=== PATIENT | male | born 1970 | race Caucasian/White ===

== ENCOUNTER 2025-05-11 16:39 | Observation (INO) ==
--- NOTE | 2025-05-11 17:39 | CT ---
EXAM: CT HEAD WITHOUT CONTRAST HISTORY: possible stroke; CVA X 1WEEK COMPARISON: None. TECHNIQUE: Axial CT images were obtained through the brain without contrast. All CT scans at this facility use dose modulation, iterative reconstruction, and/or weight based dosing when appropriate to reduce radiation dose to as low as reasonably achievable. FINDINGS: BRAIN: No evidence for acute bleed. Bustamante-white matter differentiation is preserved.There is a prominent area of decreased attenuation involving the medial portions of the left temporal lobe extending posteriorly to include the left occipital lobe which may be secondary to ischemic changes however other underlying pathology including neoplastic process is not excluded in the differential. No obvious mass is identified on this exam. No evidence for associated mass effect with this area of decreased attenuation. Age-indeterminate small lacune within left thalamus. Ventricles have normal size and contour. No shift of midline structures. Basilar cisterns are preserved. No cerebellar tonsillar ectopia. No evidence for acute calvarial findings. MASTOID AIR CELLS: Visualized mastoid air cells are well aerated. PARANASAL SINUSES: Mucosal thickening of the inferior recess of each frontal sinus and mucosal thickening of multiple bilateral ethmoid air cells otherwise paranasal sinuses are well-aerated. ORBITS: Visualized portions of globes are unremarkable. IMPRESSION: There is a prominent area of decreased attenuation involving the medial portions of the left temporal lobe extending posteriorly to include the left occipital lobe which may be secondary to ischemic changes however other underlying pathology including neoplastic process is not excluded in the differential. Age-indeterminate small lacune within left thalamus. Recommend follow-up MRI brain with IV contrast for further evaluation. THIS IS AN ELECTRONICALLY VERIFIED FINAL REPORT 05/11/2025 5:36 PM - Electronically signed by Vicente Flores DO
[2025-05-11 17:40] VITALS: BMI 34.5
--- NOTE | 2025-05-11 17:51 | DR.WEAKNES ---
HPI Time Seen Time Seen by Provider: 05/11/25 17:13 Complaints Chief Complaint Doctors Comments: Patient with history of CVA 1 year ago and then again about 1 week ago. Patient states he is having the same symptoms a little bit worsened since he was standing out in the heat today. Patient's cousin states that sometimes he seems to be a little slower processing information. Patient is currently taking aspirin 81 mg and Plavix 75 mg. Timing Symptom Onset: Known Context Stroke Symptoms: Weakness of limb ROS Review of Systems Constitutional: No Symptoms Reported Eyes: No Symptoms Reported ENTM: No Symptoms Reported Respiratoy: No Symptoms Reported Cardiovascular: No Symptoms Reported Gastrointestinal/Abdominal: No Symptoms Reported Genitourinary: No Symptoms Reported Neurological: Pre-existing Deficit, Weakness and Speech Problem; negative Numbness, Paresthesia, Seizure, Tingling, Dizziness or Problems Walking Musculoskeletal: No Symptoms Reported Integumentary: No Symptoms Reported Hematologic/Lymphatic: No Symptoms Reported Endocrine: No Symptoms Reported Psychiatric: No Symptoms Reported All Other Systems: Reviewed and Negative PE Vital Signs Vitals: Vital Signs Temperature 98.1 F Pulse Rate 72 Pulse Rate 73 Pulse Rate 70 Pulse Rate 76 Pulse Rate 71 Pulse Rate 71 Pulse Rate 71 Pulse Rate 73 Respiratory Rate 16 Respiratory Rate 15 Respiratory Rate 16 Respiratory Rate 18 Respiratory Rate 17 Respiratory Rate 20 Respiratory Rate 14 Respiratory Rate 14 Blood Pressure 125/83 Blood Pressure 136/95 Blood Pressure 137/91 Blood Pressure 145/91 Blood Pressure 135/84 O2 Sat by Pulse Oximetry 98 O2 Sat by Pulse Oximetry 99 O2 Sat by Pulse Oximetry 100 O2 Sat by Pulse Oximetry 100 O2 Sat by Pulse Oximetry 99 O2 Sat by Pulse Oximetry 99 O2 Sat by Pulse Oximetry 99 O2 Sat by Pulse Oximetry 99 General Limitations: No Limitations General Appearance: Alert and In No Apparent Distress Head Head Exam: Normal Inspection ENT ENT Exam: Normal Exam Mouth Exam: Normal Inspection Throat Exam: Normal Inspection Neck Neck Exam: Normal Inspection Chest Chest Inspection: Normal Inspection Respiratory Respiratory Exam: Normal Lung Sounds Bilat Respiratory Exam: Bilateral: Clear to Auscultation Cardiovascular Cardiovascular Exam: Regular Rate and Normal Rhythm Abdominal Exam Abdominal Exam: Normal Inspection, Normal Bowel Sounds and Soft Extremities Extremities Exam: Normal Inspection Back Back Exam: Normal Inspection Neurologic Neurological Exam: Alert and Oriented X3 Psychiatric Psychiatric Exam: Normal Affect and Normal Mood Skin Skin Exam: Warm, Dry, Intact and Normal Color COURSE Treatment Treatment: Discussed case with teleneurology and patient appears to having similar residual side effects from previous stroke. Neurologist was able to confirm with imaging from other facility and feels that CT scan reveals no significant changes from previous stroke. Discussed results of workup with patient and family. I suspect this time the slight worsening of symptoms today may be related to dehydration. Consultation Consultation Comments: Discussed case with Dr. Elizalde and he is agreeable to admission. ROR Labs Reviewed Laboratory Results Reviewed?: Yes 05/11/25 17:37 05/11/25 17:37 Laboratory: WBC 8.0 X10^3/uL (3.6-10.0) 05/11/25 17:37 RBC 4.81 X10^6/uL (4.7-6.0) 05/11/25 17:37 Hgb 15.2 g/dL (13.5-18.0) 05/11/25 17:37 Hct 43.6 % (42.0-54.0) 05/11/25 17:37 MCV 90.6 fL (80.0-100.0) 05/11/25 17:37 MCH 31.5 pg (27.0-34.0) 05/11/25 17:37 MCHC 34.8 g/dL (33.0-35.0) 05/11/25 17:37 RDW 12.4 % (11.6-16.5) 05/11/25 17:37 Plt Count 309 X10^3/uL (150.0-450.0) 05/11/25 17:37 MPV 7.1 fL (7.4-11.0) L 05/11/25 17:37 Neut % (Auto) 69.8 % (42.0-75.0) 05/11/25 17:37 Lymph % (Auto) 19.3 % (21.0-51.0) L 05/11/25 17:37 [place] % (Auto) 5.7 % (0.0-13.0) 05/11/25 17:37 Eos % (Auto) 2.9 % (0.9-2.9) 05/11/25 17:37 Baso % (Auto) 2.3 % (0.2-1.0) H 05/11/25 17:37 Neut # (Auto) 5.6 x10^3/uL (2.2-4.8) H 05/11/25 17:37 Lymph # (Auto) 1.5 X10^3/uL (1.3-2.9) 05/11/25 17:37 [place] # (Auto) 0.5 x10^3/uL (0.3-0.8) 05/11/25 17:37 Eos # (Auto) 0.2 x10^3/uL (0.0-0.2) 05/11/25 17:37 Baso # (Auto) 0.2 X10^3/uL (0.0-0.1) H 05/11/25 17:37 Absolute Nucleated RBC 0.1 /100WBC 05/11/25 17:37 PT 14.0 SECONDS (11.8-14.3) 05/11/25 17:37 INR Target Range - 05/11/25 17:37 INR 1.07 (0.8-1.3) 05/11/25 17:37 APTT 27.7 SECONDS (22.9-36.5) 05/11/25 17:37 PTT Comment - 05/11/25 17:37 Fibrinogen 440 mg/dL (239-489) 05/11/25 17:37 Sodium 143 mmol/L (136-145) 05/11/25 17:37 Corrected Sodium TNP 05/11/25 17:37 Potassium 4.1 mmol/L (3.5-5.1) 05/11/25 17:37 Chloride 107 mmol/L (98-107) 05/11/25 17:37 Carbon Dioxide 27.3 mmol/L (21-32) 05/11/25 17:37 BUN 28 mg/dL (7-18) H 05/11/25 17:37 Creatinine 1.31 mg/dL (0.70-1.30) H 05/11/25 17:37 Est GFR (MDRD) Af Amer > 60 (>60) 05/11/25 17:37 Est GFR (MDRD) Non-Af > 60 (>60) 05/11/25 17:37 Glucose 91 mg/dL (65-99) 05/11/25 17:37 POC Glucose (mg/dL) 93 mg/dL (65-99) 05/11/25 17:15 Calcium 9.1 mg/dL (8.5-10.1) 05/11/25 17:37 Corrected Calcium TNP 05/11/25 17:37 Total Bilirubin 0.50 mg/dL (0.2-1.0) 05/11/25 17:37 AST 43 Units/L (15-37) H 05/11/25 17:37 ALT 63 Units/L (12-78) 05/11/25 17:37 Alkaline Phosphatase 120 Units/L (46-116) H 05/11/25 17:37 Creatine Kinase 500 Units/L (39-308) H 05/11/25 17:37 Troponin I High Sens 12.2 ng/L (4.0-60.0) 05/11/25 17:37 Total Protein 8.8 g/dL (6.4-8.2) H 05/11/25 17:37 Albumin 4.1 g/dL (3.4-5.0) 05/11/25 17:37 Globulin 4.7 g/dL (2.5-4.5) H 05/11/25 17:37 Albumin/Globulin Ratio 0.9 Ratio (1.1-2.1) L 05/11/25 17:37 Triglycerides 48 mg/dL (0-150) 05/11/25 17:37 Cholesterol 95 mg/dL (0-200) 05/11/25 17:37 LDL Cholesterol, Calc 39 mg/dL (0-100) 05/11/25 17:37 HDL Cholesterol 46 mg/dL (40-60) 05/11/25 17:37 Cholesterol/HDL Ratio 2.1 (0.0-5.0) 05/11/25 17:37 Blood Type B POSITIVE 05/11/25 17:37 Other Results Comments: Name: JESUS HATFIELD : 1970 Sex: M Location: ER Order Number(s): [id number] Procedure(s):BRAIN CT W/O CON Ordering Physician: Kahlil Reno Primary Care: AMADA KHALIL Service Date: 05/11/25 Service Time: 1701 EXAM: CT HEAD WITHOUT CONTRAST HISTORY: possible stroke; CVA X 1WEEK COMPARISON: None. TECHNIQUE: Axial CT images were obtained through the brain without contrast. All CT scans at this facility use dose modulation, iterative reconstruction, and/or weight based dosing when appropriate to reduce radiation dose to as low as reasonably achievable. FINDINGS: BRAIN: No evidence for acute bleed. Bustamante-white matter differentiation is preserved.There is a prominent area of decreased attenuation involving the medial portions of the left temporal lobe extending posteriorly to include the left occipital lobe which may be secondary to ischemic changes however other underlying pathology including neoplastic process is not excluded in the differential. No obvious mass is identified on this exam. No evidence for associated mass effect with this area of decreased attenuation. Age-indeterminate small lacune within left thalamus. Ventricles have normal size and contour. No shift of midline structures. Basilar cisterns are preserved. No cerebellar tonsillar ectopia. No evidence for acute calvarial findings. MASTOID AIR CELLS: Visualized mastoid air cells are well aerated. PARANASAL SINUSES: Mucosal thickening of the inferior recess of each frontal sinus and mucosal thickening of multiple bilateral ethmoid air cells otherwise paranasal sinuses are well-aerated. ORBITS: Visualized portions of globes are unremarkable. IMPRESSION: There is a prominent area of decreased attenuation involving the medial portions of the left temporal lobe extending posteriorly to include the left occipital lobe which may be secondary to ischemic changes however other underlying pathology including neoplastic process is not excluded in the differential. Age-indeterminate small lacune within left thalamus. Recommend follow-up MRI brain with IV contrast for further evaluation. THIS IS AN ELECTRONICALLY VERIFIED FINAL REPORT 05/11/2025 5:36 PM - Electronically signed by Vicente Flores DO EKG Rate: 70 [place]: Normal Rhythm: NSR ST: Normal Opioid Opioid Risk Tool Total: 0 Total Score Risk Category: Low Risk Copyright: Tunde HANSON predicting aberrant behaviors Discharge Plan Diagnosis Discharge Problem: Acute ischemic stroke, Dehydration Discharge Plan Patient Disposition: 09 ADMITTED INPATIENT Condition: Stable Prescriptions: No Action atorvastatin 40 mg tablet 80 mg PO QDAY clopidogrel 75 mg tablet 75 mg PO QDAY amlodipine 5 mg tablet 10 mg PO BID lisinopril 30 mg tablet 30 mg PO BID aspirin 81 mg Tablet 81 mg PO DAILY Complete Multivitamin Tablet 1 tab PO DAILY Health Concerns: Post Hospitalization: new medications and changes needed to prevent readmission or further decline. Pt educated and given instructions on all concerns. Plan of Treatment: Continue with present treatment and follow up plan. Pt is to keep follow up appointment as instructed and take medications as ordered. Orders to Discharge Patient Discharge Orders: Transfer (Routine); Ordered 05/11/25 Ordered By: Kahlil Reno Follow ups/Referrals Follow ups/Referrals: AMADA KHALIL [Primary Care Provider, Unknown] - 3 days Instructions Stand Alone Forms: Find Help Web Site, Post Hospital Follow Up Care Print Language: KENYAN
[2025-05-11 17:56] LABS: MEAN PLATELET VOLUME 7.1 fL (7.4-11.0); RED CELL DISTRIBUTION WIDTH 12.4 % (11.6-16.5)
[2025-05-11 18:00] LABS: INR 1.07 (0.8-1.3)
[2025-05-11] MEDS ORDERED: NS 1,000 ML IV 1,000 ML IV SCH (18:00)
--- NOTE | 2025-05-11 18:02 | EKG ---
Test Reason : possible stroke Blood Pressure : */* mmHG Vent. Rate : 70 BPM Atrial Rate : 70 BPM P-R Int : 202 ms QRS Dur : 122 ms QT Int : 420 ms P-R-T Axes : 56 -62 93 degrees QTc Int : 453 ms Normal sinus rhythm Left anterior fascicular block Minimal voltage criteria for LVH, may be normal variant ( Han product ) Cannot rule out Anterior infarct , age undetermined Abnormal ECG No previous ECGs available Confirmed by Harjit Linda MD ([id number]) on 05/12/2025 7:18:46 AM Referred By: Confirmed By: Harjti Linda MD
[2025-05-11 18:23] LABS: CHOL/HDL RATIO 2.1 (0.0-5.0); CREATININE 1.31 mg/dL (0.70-1.30); eGFR NON BLACK RACES > 60 (>60)
--- NOTE | 2025-05-11 18:47 | TELESTROKE ---
[facility] Consult Date of Consult Date of Exam: 05/11/25 Time of Arrival to the ED: 16:39 Allergies Allergies Allergy/AdvReac Type Severity Reaction Status Date / Time No Known Allergies Allergy Verified 05/11/25 17:13 Vital Signs Vital Signs: Temp Pulse Resp BP Pulse Ox O2 Del Method 05/11/25 18:00 72 16 98 05/11/25 18:00 125/83 05/11/25 17:45 73 15 99 05/11/25 17:30 70 16 100 05/11/25 17:27 136/95 05/11/25 17:27 76 18 100 05/11/25 17:15 137/91 05/11/25 17:15 71 17 99 05/11/25 17:15 98.1 F 71 20 145/91 99 Room Air 05/11/25 17:00 71 14 99 05/11/25 17:00 135/84 05/11/25 16:57 73 14 99 History of Present Illness History of Present Illness: [facility] Patient Name:Martin Baptiste Date of :1970 Identification Number: Date of Service:05/11/2025 17:00:58 Diagnosis:I63.89 - Cerebrovascular accident (CVA) due to other mechanism ([facility]) Impression: 54 yo male with history of HTN, HLD, recent Left [employer]PECTOR territory stroke last week presenting to the ED today with worsening Right sided numbness and Right sided vision loss similar to his prior stroke symptoms. NIHSS 7. CT Head shows known subacute Left [employer]OR territory stroke. Concern for fluctuating symptoms in the setting of known infarct v worsening stroke burden. Plan to admit for repeat MRI Brain wo and infectious/metabolic workup. Continue ASA/Plavix. Permissive HTN. Our recommendations are outlined below. Recommendations: Stroke/Telemetry Floor Neuro Checks (Q4) Bedside Swallow Eval DVT Prophylaxis IV Fluids, Normal Saline Head of Bed 30 Degrees Euglycemia and Avoid Hyperthermia (PRN Acetaminophen) Initiate dual antiplatelet therapy with Aspirin 81 mg daily and Clopidogrel 75 mg daily. Antihypertensives PRN if Blood pressure is greater than 220/120 or there is a concern for End organ damage/contraindications for permissive HTN. If blood pressure is greater than 220/120 give labetalol PO or IV or Vasotec IV with a goal of 15% reduction in BP during the first 24 hours. Sign Out: Discussed with Emergency Department Provider Advanced Imaging:Advanced Imaging Deferred because: Advanced Imaging not obtained at this time. Reason: Acute Left [employer]OR territory stroke due to Left P1 occlusion last week, symptoms today fitting that same vascular territory Metrics: Last Known Well: 05/11/2025 10:00:00 Dispatch Time: 05/11/2025 17:00:58 Arrival Time: 05/11/2025 16:39:00 Initial Response Time: 05/11/2025 17:03:02Symptoms: worsening Right sided numbness and vision loss. Initial patient interaction: 05/11/2025 17:04:27 NIHSS Assessment Completed: 05/11/2025 17:09:31Patient is not a candidate for Thrombolytic. Thrombolytic Medical Decision: 05/11/2025 17:09:32Patient was not deemed candidate for Thrombolytic because of following reasons: Significant head trauma or stroke in previous [address] Head: I personally reviewed all the CT images that were available to me and it showed: subacute Left [employer] territory stroke. Primary Provider Notified of Diagnostic Impression and Management Plan on: 05/11/2025 17:51:04 History of Present Illness:Patient is a 54 year old Male. Patient was brought by private transportation with symptoms of worsening Right sided numbness and vision loss. Patient presenting from home. He was admitted twice last week for Left [employer]PECTOR territory stroke at [facility]. Woke up this morning, felt okay then suddenly started to not feel right. Notes that he is having worsening Right sided numbness and Right sided vision loss similar to his stroke symptoms last week. Notes that these symptoms did not completely resolved, but are worse today. Past Medical History: Hypertension Hyperlipidemia Stroke Medications: No Anticoagulant use Antiplatelet use:YesASA/Plavix Reviewed EMR for current medications Allergies: Reviewed Social History: Smoking: No Family History: There is no family history of premature cerebrovascular disease pertinent to this consultation ROS : 14 Points Review of Systems was performed and was negative except mentioned in HPI. Past Surgical History: There Is No Surgical History Contributory To Todays Visit Examination: BP(135/84),Pulse(70),Blood Glucose(93) 1A: Level of Consciousness - Alert; keenly responsive+ 0 1B: Ask Month and Age - Both Questions Right+ 0 1C: Blink Eyes & Squeeze Hands - Performs Both Tasks+ 0 2: Test Horizontal Extraocular Movements - Normal+ 0 3: Test Visual Cai - Complete Hemianopia+ 2 4: Test Facial Palsy (Use Grimace if Obtunded) - Minor paralysis (flat nasolabial fold, smile asymmetry)+ 1 5A: Test Left Arm Motor Drift - No Drift for 10 Seconds+ 0 5B: Test Right Arm Motor Drift - Drift, but doesn't hit bed+ 1 6A: Test Left Leg Motor Drift - No Drift for 5 Seconds+ 0 6B: Test Right Leg Motor Drift - Drift, but doesn't hit bed+ 1 7: Test Limb Ataxia (FNF/Heel-Jones) - Ataxia in 1 Limb+ 1 8: Test Sensation - Mild-Moderate Loss: Can Sense Being Touched+ 1 9: Test Language/Aphasia - Normal; No aphasia+ 0 10: Test Dysarthria - Normal+ 0 11: Test Extinction/Inattention - No abnormality+ 0 NIHSS Score:7 NIHSS Free Text :Decreased sensation Right face/arm/leg Pre-Morbid Modified [place] Scale:1 Points = No significant disability despite symptoms; able to carry out all usual duties and activities Spoke with :Dr. Reno This consult was conducted in real time using interactive audio and video technology. Patient was informed of the technology being used for this visit and agreed to proceed. Patient located in hospital and provider located at home/office setting. Patient is being evaluated for possible acute neurologic impairment and high probability of imminent or life-threatening deterioration. I spent total of 30 minutes providing care to this patient, including time for face to face visit via telemedicine, review of medical records, imaging studies and discussion of findings with providers, the patient and/or family. Dr Ethan Fink [facility] For Inpatient follow-up with [facility] physician please call [facility] at . As we are not an outpatient service for any post hospital discharge needs please contact the hospital for assistance. If you have any questions for the [facility] physicians or need to reconsult for clinical or diagnostic changes please contact us via [facility] at . Signature :Ethan Fink Medical Decision Making 05/11/25 17:37 05/11/25 17:37 Labs: Laboratory Results - last 24 hr 05/11/25 05/11/25 05/11/25 17:15 17:36 17:37 WBC 8.0 RBC 4.81 Hgb 15.2 Hct 43.6 MCV 90.6 MCH 31.5 MCHC 34.8 RDW 12.4 Plt Count 309 MPV 7.1 L Neut % (Auto) 69.8 Lymph % (Auto) 19.3 L [place] % (Auto) 5.7 Eos % (Auto) 2.9 Baso % (Auto) 2.3 H Neut # (Auto) 5.6 H Lymph # (Auto) 1.5 [place] # (Auto) 0.5 Eos # (Auto) 0.2 Baso # (Auto) 0.2 H Absolute Nucleated RBC 0.1 PT 14.0 INR Target Range - INR 1.07 APTT 27.7 PTT Comment - Fibrinogen 440 Sodium 143 Corrected Sodium TNP Potassium 4.1 Chloride 107 Carbon Dioxide 27.3 BUN 28 H Creatinine 1.31 H Est GFR (MDRD) Af Amer > 60 Est GFR (MDRD) Non-Af > 60 Glucose 91 POC Glucose (mg/dL) 93 Calcium 9.1 Corrected Calcium TNP Total Bilirubin 0.50 AST 43 H ALT 63 Alkaline Phosphatase 120 H Creatine Kinase 500 H Troponin I High Sens 12.2 Total Protein 8.8 H Albumin 4.1 Globulin 4.7 H Albumin/Globulin Ratio 0.9 L Triglycerides 48 Cholesterol 95 LDL Cholesterol, Calc 39 HDL Cholesterol 46 Cholesterol/HDL Ratio 2.1 Blood Type B POSITIVE B POSITIVE
[2025-05-11] MEDS ORDERED: ZOFRAN INJ 4 MG VIAL IVP PRN (20:38)
[2025-05-11] MEDS ORDERED: CONSULT PHARMACY - POTASSIUM & MAGNESIUM XX SCH (20:38)
[2025-05-11 21:48] LABS: BLOOD/HEMOGLOBIN,URINE 5+ (NEGATIVE); LEUKOCYTE ESTERASE ,URINE 2+ (NEGATIVE); NITRITES,URINE NEGATIVE (NEGATIVE)
[2025-05-11 21:49] LABS: APPEARANCE,URINE SLIGHTLY HAZY (CLEAR)
[2025-05-11 21:56] LABS: SQUAMOUS EPITHELIAL CELL,UR MODERATE /HPF (NEGATIVE)
[2025-05-11] MEDS: NS 1,000 ML IV 1,000 ML IV SCH (22:34)
[2025-05-11] MEDS: TYLENOL 325 MG TAB PO PRN (22:35)
[2025-05-11] MEDS: NORVASC TAB 5 MG PO SCH (22:35)
--- NOTE | 2025-05-11 23:10 | RAD ---
EXAM: FRONTAL VIEW CHEST X-RAY HISTORY: Stroke protocol COMPARISON: None. FINDINGS: No focal consolidation is seen. The heart size is within normal limits. The mediastinum is unremarkable. There is no evidence of pleural effusion or gross pneumothorax. The trachea is midline. IMPRESSION: No focal consolidation is seen. The heart size is normal. THIS IS AN ELECTRONICALLY VERIFIED FINAL REPORT 05/11/2025 11:07 PM - Electronically signed by Venkatesh Slade MD
[2025-05-12 05:43] LABS: MEAN PLATELET VOLUME 7.0 fL (7.4-11.0); RED CELL DISTRIBUTION WIDTH 12.6 % (11.6-16.5)
[2025-05-12 06:07] LABS: CREATININE 1.06 mg/dL (0.70-1.30); eGFR NON BLACK RACES > 60 (>60)
[2025-05-12] MEDS: LIPITOR TAB 40 MG PO SCH (09:32)
[2025-05-12] MEDS: PLAVIX PO SCH (09:32)
[2025-05-12] MEDS: ZESTRIL TAB 10 MG PO SCH (09:33)
[2025-05-12] MEDS: ASPIRIN EC 81 MG PO SCH (09:33)
[2025-05-12 12:02] VITALS: O2SAT 98
[2025-05-12] MEDS ORDERED: MULTIHANCE INJ VIAL ONE (13:44)
[2025-05-12] MEDS: CIPRO IV 400 MG PREMIX* 400 MG/200 ML IV.SOLN. IV SCH (17:01)
[2025-05-12 17:02] VITALS: BP 160/81; PULSE 73; RESP 20; TEMP 97.8
--- NOTE | 2025-05-12 18:27 | MRI ---
EXAM: BRAIN W&W/O CON HISTORY: CVA/ PT STATES HX OF STROKE CONTRAST-MULTIHANCE 20CC LEFT WRIST ; COMPARISON: CT yesterday TECHNIQUE: Multiplanar multi-sequence MRI of the brain was obtained. Sagittal T1, axial T1, axial T2, axial flair images, coronal T1, sagittal T1 post contrast, coronal T1 postcontrast, axial T1 postcontrast images were obtained. FINDINGS: The midline structures appear intact. The posterior fossa is unremarkable. The sulcal markings of the brain are normal in their appearance. Normal alvarez-white differentiation is maintained. No evidence for intraparenchymal hemorrhage or mass can be identified. No extra-axial fluid collections or subarachnoid hematoma can be seen. Evaluation of the diffusion weighted images demonstrates a large area of restricted diffusion in the left occipital lobe with small foci of restricted diffusion in the left thalamus in posterior left parietal lobe compatible with an acute/subacute infarct. This corresponds to the CT findings. Scattered small-vessel ischemic changes and age-appropriate atrophy are noted. The cerebral pontine angle is normal in its contour without evidence for mass. The ventricular system appears symmetric and nondilated. Postcontrast enhancement demonstrates no evidence for an enhancing lesion such as mass or vascular malformation. IMPRESSION: Large area of acute/subacute infarcts involving the majority of the left medial occipital lobe insert small foci involving the left posterior parietal subcortical white matter and left thalamus. THIS IS AN ELECTRONICALLY VERIFIED FINAL REPORT 05/12/2025 6:24 PM - Electronically signed by Lavon Lau MD
== END 2025-05-12 14:40 | disposition home or self-care (01) ==
LOC: MED/SURG 16:39 → ER 16:39 → MED/SURG 20:30
PROVIDERS: ADMIT Obstetrics & Gynecology Obstetrics; ATTEND Obstetrics & Gynecology Obstetrics
DX: I10 Essential (primary) hypertension; E78.5 Hyperlipidemia, unspecified; R13.11 Dysphagia, oral phase; R74.8 Abnormal levels of other serum enzymes; I63.89 Other cerebral infarction; N39.0 Urinary tract infection, site not specified; R26.89 Other abnormalities of gait and mobility; H53.8 Other visual disturbances; R94.31 Abnormal electrocardiogram [ECG] [EKG]; F41.0 Panic disorder [episodic paroxysmal anxiety]; E86.0 Dehydration